=== PATIENT | male | born 1950 | race Caucasian/White ===

== ENCOUNTER → 2024-04-06 12:45 | Outpatient (REF) | payer MEDICARE, SELFPAY | LOC: RCS 12:45 | PROVIDERS: ATTENDING PHYSICIAN Internal Medicine Cardiovascular Disease; FAMILY PHYSICIAN Nurse Practitioner Family | DX: I25.10 Atherosclerotic heart disease of native coronary artery without angina pectoris (principal); I10 Essential (primary) hypertension | CPT/HCPCS: 93306 ==

== ENCOUNTER 2024-04-10 10:56 | Emergency (ER) | payer MEDICARE, SELFPAY ==
[2024-04-10 10:57] VITALS: BP 180/74; BMI 28.4
[2024-04-10 10:58] VITALS: BP 180/74
[2024-04-10 11:00] VITALS: BP 174/89
[2024-04-10 11:16] LABS: % Basophils 0.7 % (0-2); % Eosinophils 1.3 % (0-6); % Immature Granulocytes 0.5 % (0-0.5); % Lymphocytes 21.5 % (20.5-51.1); % Monocytes 9.3 % (1.7-9.3); % Neutrophils 66.7 % (42.2-75.2); Absolute Basophils 0.1 10^3/uL (0-0.2); Absolute Eosinophils 0.1 10^3/uL (0-0.7); Absolute Immature Granulocytes 0.1 10^3/uL (0-0.05); Absolute Lymphocytes 2.1 10^3/uL (1.2-3.4); Absolute Monocytes 0.9 10^3/uL (0.1-0.6); Absolute Neutrophils 6.6 10^3/uL (1.4-6.5); Hematocrit 46.3 % (39.0-52.0); Hemoglobin 15.5 g/dL (13.0-18.0); Mean Corp Hgb Conc. 33.5 g/dL (33.0-37.0); Mean Corpuscular Hgb 29.9 pg (27.0-31.0); Mean Corpuscular Volume 89.4 fL (80.0-94.0); Mean Platelet Volume 9.4 fL (7.4-10.4); Nucleated Red Blood Cells % 0 % (-); Platelet Count 286 10^3/uL (130-400); Red Blood Cell Count 5.18 10^6/uL (4.70-6.10); Red Cell Dist. Width 13.2 % (11.5-14.5); White Blood Cell Count 9.8 10^3/uL (4.8-10.8)
[2024-04-10 11:30] VITALS: BP 148/79
[2024-04-10 11:35] LABS: ALT (SGPT) 37 U/L (0-50); AST (SGOT) 23 U/L (17-59); Albumin 4.4 g/dl (3.5-5.0); Alkaline Phosphatase 63 U/L (38-126); Blood Urea Nitrogen 26 mg/dl (9-20); Calcium 9.9 mg/dl (8.4-10.2); Carbon Dioxide 26 mmol/L (22-30); Chloride 102 mmol/L (98-107); Estimated Creatinine Clearance 64 ml/min; Glucose 110 mg/dl (70-99); Potassium 4.7 mmol/L (3.5-5.1); Sodium 140 mmol/L (135-145); Total Bilirubin 0.3 mg/dl (0.2-1.3); Total Protein 6.6 g/dl (6.3-8.2); eGFR > 60.00
[2024-04-10 11:41] LABS: Troponin I < 0.012 ng/ml
--- NOTE | 2024-04-10 11:46 | ED.GENMED ---
History of Present Illness
General
Chief Complaint: Blood Pressure Problem
Source: patient
Exam Limitations: none
Time Seen by Provider: 04/10/24 11:33
History of Present Illness
History of Present Illness:
See MDM
Past History
Past History
ED Past Medical History: Hypercholesterolemia
ED Past Surgical History: None
Social History
Tobacco: Non-smoker
Living: with family
Employment: Retired
Family History
Family History: Negative CAD
Phy Exam
Physical Exam
Physical Exam:
See MDM
Course
Orders/Labs/Results
Orders:
Orders
04/10/24 11:03
Electrocardiogram (*1) Urgent
Reason for Study: Chest Pain
EKG- Treatment ONCE
04/10/24 11:08
Comprehensive Metabolic Panel Urgent
Troponin I Urgent
04/10/24 11:09
Complete Blood Count/With Diff Urgent
04/10/24 11:45
HydrALAZINE [Apresoline] 10 mg PO NOW STA
Abnormal Lab Results
04/10/24 04/10/24
11:08 11:09
Abs Immat Gran (auto) 0.1 H 10^3/uL
(0-0.05)
Absolute Neuts (auto) 6.6 H 10^3/uL
(1.4-6.5)
Absolute Monos (auto) 0.9 H 10^3/uL
(0.1-0.6)
BUN 26 H mg/dl
(9-20)
Glucose 110 H mg/dl
(70-99)
04/10/24 11:09
04/10/24 11:08
Vital Signs
Initial and Last Documented VS:
Initial Vital Signs
BP
180/74
04/10/24 10:57
Last Documented Vital Signs
Temp Pulse Resp BP Pulse Ox
97.5 F 55 20 148/79 99
04/10/24 10:58 04/10/24 11:45 04/10/24 11:45 04/10/24 11:30 04/10/24 10:58
MDM/Problems Addressed
Differential Diagnosis Includes:
HPI and MDM Narrative:
73-year-old male presenting with concern for elevated blood pressure. He is unsure if this is related to new medication they started 3 days ago, Aricept. He is also unsure if this is related to recent poor diet. He took and asked for all due to
his uncontrolled blood pressure. He denies chest pain or shortness of breath. Patient currently symptom-free
Blood pressure is improving without intervention. However, this could be a side effect of Aricept. Patient already acknowledged he is going to eat better and have a low-salt diet. Given that he is bradycardic, will avoid calcium channel blockers
and beta-blockers. We had a long discussion about low-dose hydralazine as an add needed basis with strict parameters until he and his doctor reevaluate this
Physical exam
General: Well appearing and non-toxic
HEENT: protecting airway
Neck: appears supple
CV: No evidence of cyanosis. Bradycardic
Resp: No accessory muscle use
Abd: Non-distended
Extremities: No deformities. No leg edema
Neuro: alert
Psych: Normal affect
Skin: Intact
Problems Addressed including Acute and Chronic Conditions affecting care:
1. Asymptomatic hypertension
Acuity: acute
Prognosis: stable
Details: Likely in the setting of poor diet and possibly side effect of Aricept. Will obtain blood work to rule out endorgan damage. Patient started hydralazine as needed
Updates
Labs without any evidence of endorgan damage. Patient is well-appearing and nontoxic and continues to deny any complaint. Patient comfortable discharge
Differential Diagnosis (but not limited to): Asymptomatic hypertension, medication side effect
Testing considered: Second troponin but denies chest pain or shortness
Drug therapy (if applicable): OTC meds, please see d/c instruction regarding Rx drugs
Amount and/or Complexity of Data Reviewed
Clinical info obtained from: Patient
External data reviewed: N/A
Labs I independently reviewed (but not limited to): Troponin
Radiology: N/A
Pulse Ox: not hypoxic
EKG independently reviewed: Sinus bradycardia, normal axis, no STEMI
Mailroom Coordinator: Sinus bradycardia
Critical Care: N/A
Risk of Complication:
Social Determinants of health: Good social support
Discussed with other providers: N/A
Escalation of Care includes Admit/Obs: After being observed in the Emergency Department, pt stable for discharge.
Occasional wrong word or 'sound a like' substitutions may have occurred due to the inherent limitations of voice recognition software. Read the chart carefully and recognize, using context, where substitutions have occurred.
*Critical Care Note
Total Time (30-74mins, 75-104mins- exclusive of procedures): Not Applicable
ED Attending Note
-
Portions of this chart may have been created with voice recognition software.� Occasional wrong word or��sound alike� substitutions may have occurred due to the inherent limitations of voice recognition software.
Discharge Plan
Departure
Patient Disposition: Home (Routine Discharge)
Date of Disposition: 04/10/24
Time of Disposition: 12:21
Patient with high blood pressure during this ER visit?: Yes
Discharge Problem:
HTN (hypertension)
Instructions: High Blood Pressure (DC), BLOOD PRESSURE
Prescriptions:
New
hydralazine 10 mg tablet
10 mg PO DAILY Qty: 30 0RF
No Action
No Meds [No Current Medications]
0
Referrals:
Alfreda Chavez NP [Family Provider] -
Activity Restrictions/Additional Instructions:
As we discussed, your elevated blood pressure could be a side effect of Aricept and also a side effect of your recent high fat and high sodium diet.
Please take the new blood pressure medicine mid afternoon if your blood pressure is greater than 150/90. Continue other medications as prescribed. Please call your doctor tomorrow for first available appointment to evaluate your blood pressure.
Interventions
Interventions:
*Risk Screen - Suicide Last Done: 04/10/24 10:58
*General Assessment Last Done: 04/10/24 10:58
*Neglect/Abuse Screening Last Done: 04/10/24 11:05
ED- Fall Risk Assessment Last Done: 04/10/24 10:58
ED- Cardiac Assessment Last Done: 04/10/24 10:58
ED- Neurological Assessment Last Done: 04/10/24 11:05
ED- Pulmonary Assessment Last Done: 04/10/24 11:05
Discharge Date and Time
Print Language: [id number]
[2024-04-10] MEDS: APRESOLINE 10 MG PO (11:49)
[2024-04-10 12:00] VITALS: BP 162/68
[2024-04-10 12:30] VITALS: BP 167/68
== END 2024-04-10 12:37 | disposition home or self-care (01) ==
LOC: EMR 10:56
PROVIDERS: EMERGENCY PHYSICIAN Student in an Organized Health Care Education/Training Program; FAMILY PHYSICIAN Nurse Practitioner Family
DX: I10 Essential (primary) hypertension (principal); E78.00 Pure hypercholesterolemia, unspecified
CPT/HCPCS: 99283; 80053; 84484; 85025; 93005